=== PATIENT | male | born 1965 | race Hispanic/Latino ===

== ENCOUNTER 2018-06-28 14:25 | Inpatient (IN) | payer SELFPAY ==
--- NOTE | 2018-06-28 15:36 | RAD ---
CHEST ONE VIEW: Indication: Hypertension. Comparison: None. FINDINGS: Lungs are clear. Heart size is upper limits of normal. There is focal eventration of the right hemidi aphragm. No pleural effusion or pneumothorax is evident. IMPRESSION: No acute cardiopulmonary abnormality. POS: [facility]
[2018-06-28 15:53] LABS: #Basophils 0.1 thou/uL (0.0-0.2); #Eosinphils 0.1 thou/uL (0.0-0.7); #Monocytes 0.8 thou/uL (0.11-0.59); #Neutrophils 8.2 thou/uL (1.40-6.50); %Basophils 0.9 % (0.0-1.0); %Eosinophils 1.1 % (0.0-10.0); %Lymphocytes 24.1 % (21.0-51.0); %Monocytes 6.8 % (0.0-10.0); %Neutrophils 67.1 % (42.0-75.0); Hemoglobin 19.9 g/dL (14.0-18.0); Mean Corpuscular HGB CONC 31.8 g/dL (32.0-36.0); Mean Corpuscular Hemoglobin 30.5 pg (27.0-31.0); Mean Corpuscular Volume 95.7 fL (78.0-98.0); Mean Platelet Volume 8.1 fL (7.4-10.4); Platelet Count 305 thou/uL (130-400); RBC Distribution Width 12.6 % (11.5-14.5); Red Blood Cell (RBC) Count 6.54 mill/uL (4.70-6.10); White Blood Cell (WBC) Count 12.3 thou/uL (4.8-10.8)
[2018-06-28 16:08] LABS: ALT (SGPT) 30 U/L (8-55); AST (SGOT) 50 U/L (5-34); Albumin 1.9 g/dL (3.5-5.0); Alkaline Phosphatase 104 U/L (40-150); Anion Gap 10 mmol/L (10-20); BUN (Urea Nitrogen) 14 mg/dL (8.4-25.7); Bilirubin, Total 0.3 mg/dL (0.2-1.2); CK (CPK) 155 U/L (30-200); Calc. Creatinine Clearance 0 mL/min (70-130); Calcium 8.1 mg/dL (7.8-10.44); Carbon Dioxide 27 mmol/L (22-29); Chloride 102 mmol/L (98-107); Estimated GFR-MDRD 85; Globulin 3.9 g/dL (2.4-3.5); Glucose 97 mg/dL (70-105); Potassium 4.1 mmol/L (3.5-5.1); Protein, Total 5.8 g/dL (6.0-8.3); Sodium 135 mmol/L (136-145)
[2018-06-28 16:13] LABS: CKMB 2.4 ng/mL (0-6.6); Troponin I Less than 0.010 ng/mL (< 0.028)
[2018-06-28 17:04] LABS: Bilirubin Small (Negative); Blood, Urine Large (Negative); Clarity TURBID (Clear); Glucose, Urine (Dipstick) Negative (Negative); Leukocyte Small (Negative); Nitrite Negative (Negative); Protein, Urine (Dipstick) > or equal to 300 mg/dL (Neg-Trace)
[2018-06-28 17:07] LABS: Yeast-AUWi Flag 803.1 (0-25.0)
[2018-06-28 17:15] LABS: Bacteria/HPF 1+ HPF (None Seen); Hyaline Casts/LPF 4-6 HYALINE CAST LPF (0-3 Hyaline); Manual Microscopic Reviewed? No Path Casts Seen; Other Casts/LPF 0-3 RBC CASTS LPF (0-3 Hyaline); Renal Epithelial None Seen HPF (0-3); Yeast-All Forms None Seen HPF (None Seen)
[2018-06-28 17:19] LABS: Specific Gravity, Urine 1.058 (1.002-1.036)
[2018-06-28] MEDS ORDERED: cefTRIAXone\\ROCEPHIN 1 GM VIAL ONE (18:48)
[2018-06-28] MEDS ORDERED: Ondansetron ODT 4 MG TAB SL PRN (22:17)
[2018-06-28] MEDS ORDERED: Ondansetron PF 4 MG/2 ML Vial IVP PRN (22:17)
[2018-06-28] MEDS ORDERED: Acetaminophen 325 MG TAB PO PRN (22:17)
[2018-06-28 22:21] VITALS: BMI 38.0
[2018-06-28 23:05] LABS: HIV (1/2) Antibody/Antigen Non-Reactive (NonReactive); HIV 1/2 INDEX 0.12 S/CO (<1.00)
--- NOTE | 2018-06-29 01:45 | HP ---
CHIEF COMPLAINT: Edema. HISTORY OF PRESENT ILLNESS: Patient is a 52-year-old male with no significant past medical history w andra presented to the emergency department with the complaint of edema. Patient reports that it has be en about a month and since symptoms started. He states on the day or just immediately before startin g it, the patient was working outside in May, it was hot and he did a lot of sweating. He was having a lot of muscle cramping in his hands, neck, and arms and everywhere that he was exerting. He subsequently got better from that, but when he got home the night he noticed that he had some swelli ng in his feet. He subsequently went to bed and it was somewhat better by the next morning. However , over the past month, he has insidiously had increasing edema of the feet up the legs the abdomen an d today he noticed that he had some sort of flaccid edema in the left pectoralis area and did not hav e it on the right. Therefore, he decided to come to the emergency department. He does report that i n the interim, he has also been to his sister's home and had his blood pressure checked and it has be en high. He also checked it at a pharmacy where it was also noted to be high. He has no history of hypertension, but has not seen a doctor in 40 years. The patient denies having any antecedent illnes s such as upper respiratory infections or sore throat. He does admit to having some decreased urine output. He feels like he has had a little more difficulty voiding, thought maybe he had a urinary tr act infection, so he has been trying to drink cranberry juice. He also admits that his urine has bec ome darker. He denies any significant chest pain, shortness of breath or palpitations. He does admi t to increased generalized fatigue, more so than he had in the past. He does feel some general heavi ness sensation in his abdomen and chest areas. REVIEW OF SYSTEMS: A 10-system review negative except for those things listed in the history of pres ent illness. PAST MEDICAL HISTORY: None. Again, patient has not seen a doctor in over 40 years. PAST SURGICAL HISTORY: None. FAMILY HISTORY: The patient is adopted, but believes his biological father had diabetes and ME. SOCIAL HISTORY: Patient is a very occasional drinker, not regular, not heavy. Denies tobacco. He d oes have some remote history of drugs, but never did IV drugs. Has not used any in a good while. He is . His sister would be his surrogate decision maker and he is a FULL CODE. MEDICATIONS: None. ALLERGIES: None. PHYSICAL EXAMINATION: VITAL SIGNS: Blood pressure 153/91, pulse 80, respirations 18, temperature 98.2, O2 sat 97% on room air. GENERAL APPEARANCE: Age appropriate male. He is in no distress. He is awake, alert, and oriented, pleasant, cooperative. HEENT: PERRL. No OP lesions. NECK: Supple and symmetric. No lymphadenopathy, JVD, or carotid bruits. CARDIOVASCULAR: Regular rate and rhythm without murmurs, gallops or rubs. LUNGS: Clear to auscultation bilaterally with good chest wall expansion, air exchange. ABDOMEN: Soft with some superficial pitting, but no tenderness, no masses. EXTREMITIES: Extremities have 2+ to 3+ pitting edema all the way up to the abdomen and appears to gentile ve good blood flow. SKIN: Warm and dry. LABORATORY DATA: White count is 12.3, hemoglobin 19.9, hematocrit 62.6, platelets 305. Sodium 135, potassium 4.1, chloride 102, CO2 is 27, BUN 14, creatinine 0.93. AST 50, ALT 30, alkaline phosphatas e 104. Troponin less than 0.01. BNP 71.2. Albumin is 1.9 with total protein of 5.8, globulin 3.9. Urinalysis, specific gravity 1.058. Urine protein is greater than 300, ketones 15, large blood, sma ll bilirubin, small leukocyte esterase, 7-10 red cells, greater than 50 white cells, 4-6 squamous kole ls, 4-6 transitional cells, 1+ bacteria, 4-6 hyaline casts, 0-3 RBC casts. Chest x-ray negative. ASSESSMENT AND PLAN: 1. Severe peripheral edema in a patient with no known prior medical history, but with some elevated blood pressure. His labs are most remarkable for hypoalbuminemia with significant proteinuria. He a lso has some hyalin casts, red cell casts and some evidence of hemoconcentration. His BNP is also lo w at 71.2. His globulin is a bit high and I suspect this patient may be suffering from a nephrotic s yndrome with significant proteinuria and secondary anasarca. We will obtain a TSH, hepatitis panel, serum and protein electrophoresis, urine quantitative protein, renal ultrasound, echocardiogram and c onsult Nephrology. The patient has received a dose of Rocephin in the emergency department. He has cultures pending, although I suspect he does not have true infectious etiology at this particular kennedy e, we will continue to wait for Nephrology consult and cultures. 2. Polycythemia may be some hemoconcentration with his third spacing of fluids. 3. Leukocytosis, unclear etiology, possible the patient may have some urinary tract infection and he has received a dose of Rocephin. We will follow up. 4. Normal creatinine with nephrotic syndrome appearance concerning for minimal change .
[2018-06-29 09:00] LABS: Complement-C4 36.4 mg/dL (15-53)
[2018-06-29 09:05] LABS: Prothrombin Time 13.1 SEC (12.0-14.7)
[2018-06-29 09:06] LABS: PTT 29.1 SEC (22.9-36.1)
--- NOTE | 2018-06-29 10:09 | ULT ---
RENAL ULTRASOUND: HISTORY: Renal insufficiency. TECHNIQUE: Real-time imaging of the right and left kidneys was performed. The right kidney measures 12.1 and th e left 11.6 cm in size. No signs of cyst, mass, or obstruction. The bladder region is unremarkable. Ascites is incidentally noted. FINDINGS: 1. Ascites. 2. Unremarkable renal ultrasound. POS: [facility]
[2018-06-29 11:04] LABS: Hep C IgG Ab Reflex HepC Qnt (NonReactive); Hep C Index 17.21 S/CO (0-0.79)
--- NOTE | 2018-06-29 21:16 | PDOC.PN ---
- Subjective Encounter Start Date: 06/29/18 Encounter Start Time: 10:30 - Objective Resuscitation Status: Resuscitation Status FULL:Full Resuscitation Vital Signs & Weight: Vital Signs (12 hours) Temp Pulse Resp BP Pulse Ox 06/29/18 15:20 98.2 F 69 20 134/93 H 96 06/29/18 11:07 98.4 F 72 20 140/91 H 95 Weight Admit Weight 250 lb 4 oz Weight 250 lb 9.6 oz I&O: 06/28/18 06/29/18 06/30/18 06:59 06:59 06:59 Intake Total 950 1100 Output Total 800 160 Balance 150 940 Result Diagrams: 06/28/18 15:40 06/28/18 15:40 Phys Exam - Physical Examination Constitutional: NAD Respiratory: no wheezing, no rales, no rhonchi, clear to auscultation bilateral Cardiovascular: RRR, no significant murmur S4 Gastrointestinal: soft, non-tender, no distention Edema to the chest Psychiatric: normal affect, A&O x 3 Dx/Plan (1) Nephritic syndrome Code(s): N05.9 - UNSP NEPHRITIC SYNDROME WITH UNSPECIFIED MORPHOLOGIC CHANGES Status: Acute (2) Anasarca Code(s): R60.1 - GENERALIZED EDEMA Status: Acute (3) Hypertension Code(s): I10 - ESSENTIAL (PRIMARY) HYPERTENSION Status: Acute - Plan * New onset nephrotic syndrome. So far work up has not yielded anything to help specify the exact pathology. Biopsy tomorrow.
--- NOTE | 2018-06-30 03:33 | CON ---
NEPHROLOGY CONSULTATION DATE OF CONSULTATION: 06/29/2018 REASON FOR CONSULTATION: Proteinuria. HISTORY OF PRESENT ILLNESS: This is a 52-year-old gentleman being admitted for leg swelling started about a month ago with major edema. The patient denies no fever, nausea, vomiting or chills. The pa tient denies any history of hepatitis or any drug use. Denies any significant past medical history. PAST MEDICAL HISTORY: Only significant for hypertension and edema. SOCIAL HISTORY: No alcohol use. FAMILY HISTORY: Negative for ESRD. HOME MEDICATIONS: List reviewed. ALLERGIES: Reviewed. PHYSICAL EXAMINATION: GENERAL: The patient is awake, alert. VITAL SIGNS: Afebrile, pulse 80, breathing 16, blood pressure . GENERAL APPEARANCE AND MENTAL STATUS: Fair. HEAD/NECK: Normocephalic. Atraumatic. EYES: EOMI. No deformity. EARS: Clear. No ulcers. NOSE: Intact. No lesions. MOUTH: Clear. No discharge. THROAT: Clear. No exudate. LUNGS: Clear. No crackles. CARDIAC: S1, S2. No rub. ABDOMEN: Benign. BS+. GENITALIA/RECTUM: Norton absent. BACK/EXTREMITIES: 4+ edema ulcer- NEUROLOGICAL: Alert and motor intact. SKIN: Rash- Bruise- LYMPHATICS: Edema- ulcer- LABORATORY: Creatinine is 0.9, albumin is 1.9. Urine protein is 6 grams. ASSESSMENT AND RECOMMENDATIONS: 1. Acute kidney with chronic kidney disease could be because of rheumatological or infectious causes . Would recommend getting hepatitis C and hepatitis B. Workup also an HIV test and I will order the workup for rheumatologic diseases such as lupus. The patient will need a kidney biopsy. Risks vers us benefits were discussed. I will order a renal biopsy in the morning. 2. Anemia, proteinuria, see above. I would recommend starting low dose CHANDLER inhibitor.
[2018-06-30 05:54] LABS: #Basophils 0.1 thou/uL (0.0-0.2); #Eosinphils 0.2 thou/uL (0.0-0.7); #Lymphocytes 3.3 thou/uL (1.20-3.40); #Monocytes 0.8 thou/uL (0.11-0.59); #Neutrophils 3.7 thou/uL (1.40-6.50); %Basophils 1.1 % (0.0-1.0); %Lymphocytes 40.3 % (21.0-51.0); %Monocytes 10.3 % (0.0-10.0); %Neutrophils 45.4 % (42.0-75.0); Hemoglobin 17.6 g/dL (14.0-18.0); Mean Corpuscular HGB CONC 32.8 g/dL (32.0-36.0); Mean Corpuscular Hemoglobin 31.4 pg (27.0-31.0); Mean Platelet Volume 8.3 fL (7.4-10.4); Platelet Count 240 thou/uL (130-400); RBC Distribution Width 12.5 % (11.5-14.5); Red Blood Cell (RBC) Count 5.58 mill/uL (4.70-6.10); White Blood Cell (WBC) Count 8.1 thou/uL (4.8-10.8)
[2018-06-30 15:04] LABS: ANA Symphony (Qualitative) Negative (Negative); dsDNA IgG Antibody 0.8 IU/mL (<10 Negative)
[2018-06-30 15:25] LABS: EliA Vaculitis New Method **** NEW METHOD ****; Mitochondrial Ab 0.5 U/mL (<4 Negative)
[2018-06-30 15:26] LABS: EliA Vaculitis New Method **** NEW METHOD ****; Glomerular Basemt Membrane Ab Less than 1.9 EliAU/mL (<7 Negative)
[2018-06-30 15:45] LABS: Cardiolipin IgA Ab 1.5 APL-U/mL (<14 Negative); Cardiolipin IgG Ab 0.6 GPL-U/mL (<10 Negative); Cardiolipin IgM Ab 1.6 MPL-U/mL (<10 Negative); EliA APS New Method **** NEW METHOD ****; beta-2-Glycoprotein I IgA Ab 1.2 U/mL (<7 Negative); beta-2-Glycoprotein I IgG Ab Less than 0.6 U/mL (<7 Negative); beta-2-Glycoprotein I IgM Abs Less than 2.9 U/mL (<7 Negative)
--- NOTE | 2018-06-30 18:56 | CT ---
CT GUIDED RANDOM KIDNEY BIOPSY: Date: 06/30/18 INDICATION: Proteinuria. Test [employer] requested biopsy for diagnostic purposes. FINDINGS: Two 18 gauge core biopsy specimens were taken from the inferior pole of the left kidney under CT guid ance. Dr. Esquivel was present at CT and confirmed adequacy of the specimens. PROCEDURE NOTE: The procedure was discussed with the patient. Complications, including bleeding, were discussed. The patient was placed prone on the CT table. CT images were obtained. The skin entry site was identi fied and marked. The overlying skin was then prepped and draped in the sterile manner. Local anesthes ia was then administered with lidocaine and bicarb. A tiny incision was made in the skin. A 15 length 17 gauge guide needle with trocar in place was then introduced under CT guidance into the inferior p ole of the left kidney from a posterior approach. CT confirmed tip of the needle along the posterior margin of the renal cortex of the inferior pole. Trocar was removed and biopsy instrument attached. A 2.3 cm length 18 gauge core biopsy specimen was obtained and given to pathology. A second biopsy specimen was obtained at a slightly superior location in the lower pole. Second sampl e was given to pathology. Needle was removed. Postprocedure CT scan was performed. The postprocedure CT revealed a small subcap sular hematoma involving the posterior aspect of the lower pole of the left kidney at the biopsy site . The subcapsular hematoma measures approximately 1.8 cm width. The patient was returned to his room and vital signs will be monitored every 15 minutes x1 hour, and every 30 minutes x2 hours. The patient tolerated the procedure well and with no problems or complicat ions. POS: [facility]
--- NOTE | 2018-06-30 21:15 | PDOC.PN ---
- Subjective Encounter Start Date: 06/30/18 Encounter Start Time: 11:10 Doing well. No complaints. - Objective Resuscitation Status: Resuscitation Status FULL:Full Resuscitation Vital Signs & Weight: Vital Signs (12 hours) Temp Pulse Resp BP Pulse Ox 06/30/18 20:19 98.2 F 72 18 160/90 H 95 06/30/18 20:15 98.2 F 72 18 160/90 H 95 06/30/18 20:00 95 06/30/18 17:12 98.4 F 66 18 128/77 95 Weight Admit Weight 250 lb 4 oz Weight 250 lb 9.6 oz I&O: 06/29/18 06/30/18 07/01/18 06:59 06:59 06:59 Intake Total 950 1720 360 Output Total 800 1210 Balance 150 510 360 Result Diagrams: 06/30/18 05:19 06/28/18 15:40 Phys Exam - Physical Examination Constitutional: NAD Respiratory: no wheezing, no rales, no rhonchi, clear to auscultation bilateral Cardiovascular: RRR, no significant murmur Gastrointestinal: soft, non-tender, no distention Persistent pitting edema of the LE's 2+ Psychiatric: normal affect, A&O x 3 Dx/Plan (1) Nephrotic syndrome Code(s): N04.9 - NEPHROTIC SYNDROME WITH UNSPECIFIED MORPHOLOGIC CHANGES Status: Acute Comment: Workup underway. May be related to Hep C, but confirmation pending. Biopsy today. Nephrology following. (2) Anasarca Code(s): R60.1 - GENERALIZED EDEMA Status: Acute (3) Hypertension Code(s): I10 - ESSENTIAL (PRIMARY) HYPERTENSION Status: Acute Comment: Variable. Will consider treatment pending biopsy results. - Plan * Above. * May be able to discharge for outpatient follow up. * Has positive hep c ab. Quantitative confirmation pending.
--- NOTE | 2018-06-30 21:25 | PRG ---
DATE OF SERVICE: 06/30/2018 SUBJECTIVE: This is a 52-year-old gentleman being seen for proteinuria. The patient denies any naus ea, vomiting or chest pain. PHYSICAL EXAMINATION: GENERAL APPEARANCE: The patient is awake, alert. VITAL SIGNS: Pulse 60, breathing 16, blood pressure 128/77. HEAD/NECK: Normocephalic. Atraumatic. EYES: EOMI. No deformity. EARS: Clear. No ulcers. NOSE: Intact. No lesions. MOUTH: Clear. No discharge. THROAT: Clear. No exudate. LUNGS: Clear. No crackles. CARDIAC: S1, S2. No rub. ABDOMEN: Benign. BS+. GENITALIA/RECTUM: Norton absent. BACK/EXTREMITIES: Edema 0+ Ulcer- NEUROLOGICAL: Alert and motor intact. SKIN: Rash- Bruise- LYMPHATICS: Edema- Ulcer- RHEUMATOLOGIC: Immunology negative. LABORATORY DATA: Show hemoglobin 13.6, creatinine 0.9. Hepatitis C screening is positive. ASSESSMENT AND RECOMMENDATIONS: 1. Nephrotic range proteinuria, renal biopsy pending. 2. Hypertension, stable. 3. Anemia, stable. 4. Proteinuria. Start the patient on CHANDLER inhibitor. Discussed side effects. Check labs in the [facility].
[2018-07-01 05:08] LABS: Anion Gap 11 mmol/L (10-20); BUN (Urea Nitrogen) 18 mg/dL (8.4-25.7); Calc. Creatinine Clearance 158 mL/min (70-130); Calcium 7.5 mg/dL (7.8-10.44); Carbon Dioxide 24 mmol/L (22-29); Chloride 104 mmol/L (98-107); Estimated GFR-MDRD Greater than 90; Glucose 81 mg/dL (70-105); Potassium 3.8 mmol/L (3.5-5.1); Sodium 135 mmol/L (136-145)
[2018-07-01 07:53] VITALS: TEMP 98.2
[2018-07-01] MEDS ORDERED: Lisinopril 5 MG TAB PO SCH (09:00)
[2018-07-01 11:27] VITALS: BP 154/95
--- NOTE | 2018-07-01 12:00 | PRG ---
DATE OF SERVICE: 07/01/2018 SUBJECTIVE: A 52-year-old gentleman being seen for acute kidney injury. The patient denies any naus ea, vomiting, or chest pain. PHYSICAL EXAMINATION: GENERAL: Patient is awake, alert. VITAL SIGNS: Afebrile, pulse 62, breathing 16, blood pressure 149/98. HEAD/NECK: Normocephalic. Atraumatic. EYES: EOMI. No deformity. EARS: Clear. No ulcers. NOSE: Intact. No lesions. MOUTH: Clear. No discharge. THROAT: Clear. No exudate. LUNGS: Clear. No crackles. CARDIAC: S1, S2. No rub. ABDOMEN: Benign. BS+. GENITALIA/RECTUM: Norton absent. BACK/EXTREMITIES: Lower extremity shows edema. NEUROLOGICAL: Alert and motor intact. SKIN: Rash- Bruise- LYMPHATICS: Edema- Ulcer- LABORATORY DATA: Show creatinine is 0.8. ASSESSMENT AND RECOMMENDATIONS: 1. Stage I chronic kidney disease, stable. 2. Hypertension. Continue 10 mg of lisinopril. 3. Proteinuria workup and pending workup for renal biopsy is pending. The patient can be followed u p as an outpatient in 3-4 days.
[2018-07-02 07:11] LABS: HCV log10 6.737 (.); Hep C PCR-Quant 5460000 IU/mL (.)
[2018-07-03 14:25] LABS: Factor VIII Test 349.6 % ACTIVE (56-157)
[2018-07-03 15:21] LABS: Hep B Surface AG-Rflx Sendout Negative (Negative); Hepatitis B Core IgM AB Negative (Negative); Hepatitis B Core Total Negative (Negative); Hepatitis B Surface AB-Sendout Non Reactive (.)
[2018-07-03 19:10] LABS: A/G Ratio 0.4 (0.7-1.7); Albumin 1.3 g/dL (2.9-4.4); Alpha 1 0.2 g/dL (0.0-0.4); Alpha 2 1.5 g/dL (0.4-1.0); Gamma 0.6 g/dL (0.4-1.8); Globulin, Total 3.2 g/dL (2.2-3.9); M-Spike Not Observed g/dL (Not Observed)
[2018-07-04 09:14] LABS: DRVVT Confirm 39.5; DRVVT Ratio 0.9 Ratio (1.2 or Less); DRVVT Screen 33.8 SEC (20-50)
[2018-07-04 09:24] LABS: HEX PHOS LA Tube 2 54.7 SEC; Hexagonal Phospholipid Neut 0.3 SEC (0-8.0)
[2018-07-04 16:15] LABS: Albumin-Ur 66.8 % (.); Alpha 1 - Ur 2.5 % (.); Alpha 2 - Ur 11.2 % (.); Beta-Ur 13.1 % (.); Gamma-Ur 6.4 % (.); M-Spike,% Not Observed % (Not Observed); Protein, Urine 4087.7 mg/dL (Not Estab.)
== END 2018-07-01 13:50 | disposition home or self-care (01) | DRG 700 ==
LOC: ERS 14:25 → 2SW 17:27 → OBSVTOIN 17:27 → T4-B 06-29 19:50
PROVIDERS: ADMIT Internal Medicine; ATTEND Internal Medicine
PROC: 0TB13ZX Excision of Left Kidney, Percutaneous Approach, Diagnostic (ICD-10-PCS; principal; 2018-06-30)
DX: N04.9 Nephrotic syndrome with unspecified morphologic changes (principal); R60.1 Generalized edema; I10 Essential (primary) hypertension; D75.1 Secondary polycythemia; N18.3 Chronic kidney disease, stage 3 (moderate); I12.9 Hypertensive chronic kidney disease with stage 1 through stage 4 chronic kidney disease, or unspecified chronic kidney disease; N18.1 Chronic kidney disease, stage 1
CPT/HCPCS: 36415; 50200; 71045; 76770; 77012; 80048; 80053; 81003; 81015; 82553; 82570; 83516; 83880; 84156; 84165; 84166; 84443; 84484; 85025; 85240; 85250; 85598; 85610; 85613; 85730; 86038; 86146; 86147; 86160; 86225; 86704; 86705; 86706; 86707; 86803; 87340; 87350; 87389; 87522; 88329; 90471; 90686; 93005; 93306; 96365; G0008; J0696

== ENCOUNTER 2019-01-16 14:17 | Observation (INO) | payer OTHER, SELFPAY ==
[2019-01-16 16:06] LABS: #Basophils 0.1 thou/uL (0.0-0.2); #Eosinphils 0.2 thou/uL (0.0-0.7); #Lymphocytes 3.2 thou/uL (1.20-3.40); #Monocytes 0.6 thou/uL (0.11-0.59); #Neutrophils 5.9 thou/uL (1.40-6.50); %Basophils 1.1 % (0.0-1.0); %Lymphocytes 31.5 % (21.0-51.0); %Monocytes 6.4 % (0.0-10.0); Hemoglobin 14.8 g/dL (14.0-18.0); Mean Corpuscular HGB CONC 32.7 g/dL (32.0-36.0); Mean Corpuscular Hemoglobin 30.7 pg (27.0-31.0); Mean Platelet Volume 7.7 fL (7.4-10.4); Platelet Count 336 thou/uL (130-400); RBC Distribution Width 13.6 % (11.5-14.5)
[2019-01-16 16:29] LABS: ALT (SGPT) 9 U/L (8-55); AST (SGOT) 19 U/L (5-34); Albumin 1.6 g/dL (3.5-5.0); Alkaline Phosphatase 107 U/L (40-150); Anion Gap 9 mmol/L (10-20); BUN (Urea Nitrogen) 17 mg/dL (8.4-25.7); Bilirubin, Total 0.2 mg/dL (0.2-1.2); Calc. Creatinine Clearance 0 mL/min (70-130); Carbon Dioxide 25 mmol/L (22-29); Chloride 109 mmol/L (98-107); Estimated GFR-MDRD 37; Globulin 3.8 g/dL (2.4-3.5); Glucose 98 mg/dL (70-105); Lipase 19 U/L (8-78); Protein, Total 5.4 g/dL (6.0-8.3); Sodium 140 mmol/L (136-145)
[2019-01-16 16:32] LABS: Potassium 2.6 mmol/L (3.5-5.1)
[2019-01-16] MEDS ORDERED: Potassium Chloride 20 MEQ TAB ONE (16:58)
[2019-01-16] MEDS ORDERED: Furosemide 20 MG/2 ML VIAL ONE (18:12)
[2019-01-16 19:04] LABS: Bilirubin Negative (Negative); Blood, Urine Moderate (Negative); Clarity CLOUDY (Clear); Glucose, Urine (Dipstick) 500 mg/dL (Negative); Leukocyte Negative (Negative); Nitrite Negative (Negative); Protein, Urine (Dipstick) > or equal to 300 mg/dL (Neg-Trace); Urobilinogen 0.2 mg/dL (0.2-1.0); pH, Urine 6.5 (5.0-9.0)
[2019-01-16 19:07] LABS: Pathc Cast-AUWi Flag 3.12 (0-2.49); Yeast-AUWi Flag 412.6 (0-25.0)
[2019-01-16 19:15] LABS: Bacteria/HPF 1+ HPF (None Seen)
[2019-01-16 19:16] LABS: Hyaline Casts/LPF NONE SEEN LPF (0-3 Hyaline); Manual Microscopic Reviewed? No Path Casts Seen; Renal Epithelial None Seen HPF (0-3); Transitional Epithelial 0-3 HPF (0-3); Yeast-All Forms None Seen HPF (None Seen)
[2019-01-16] MEDS ORDERED: Acetaminophen 325 MG TAB PO PRN (21:29)
[2019-01-16] MEDS ORDERED: Senokot S 8.6-50 MG TAB PO PRN (21:29)
[2019-01-16] MEDS ORDERED: Ondansetron PF 4 MG/2 ML Vial IVP PRN (21:29)
[2019-01-16] MEDS ORDERED: Acetaminophen 650 MG Suppository PR PRN (21:29)
[2019-01-16] MEDS ORDERED: Ondansetron ODT 4 MG TAB PO PRN (21:29)
[2019-01-16] MEDS ORDERED: Guaifenesin DM 100-10/5 ML UDCUP PO PRN (21:29)
[2019-01-16] MEDS: Metoprolol Tartrate 50 MG TAB PO SCH (22:47)
[2019-01-16] MEDS: Rosuvastatin 20 MG TAB PO SCH (22:47)
[2019-01-17 00:27] VITALS: BMI 37.3
--- NOTE | 2019-01-17 01:35 | HP ---
PRIMARY CARE PHYSICIAN: Dr. Felicia Lakhani. CHIEF COMPLAINT: Worsening anasarca. HISTORY OF PRESENT ILLNESS: This is a 53-year-old male who was diagnosed with nephrotic syndrome in June of last year with lower extremity and abdominal swelling and also diagnosed with hepatitis C at that time, though no cirrhosis. The patient was treated by Dr. Chaudhari. He has been receiving diuretics, which often helped the edema; however, he works for a [employer] company, runs the bulldozer all day, so he cannot be getting up and down to urinate, so he waits until taking his medicine, until after he gets off work in the evening. This keeps him up half the night and he does not get much sleep before he goes back to working in the next day. Also due to his work schedule and living by himself, he does not eat a healthy diet and eats out a lot and he does not like the taste of food if it does not have salt in it. He does not know how to cook healthy food himself. The patient was last seen by Dr. Chaudhari about 3 months ago. He had been doing decently with swelling going on and off a little bit, but then it got significantly worse over the last few weeks. The patient went to see Dr. Chaudhari today and Dr. Chaudhari saw his significant abdominal distention and lower extremity edema and then he sent him over to the emergency room. In the ER, the patient was found to be significantly hypokalemic and also to have some acute renal failure. He was given a dose of oral potassium and a dose of furosemide in the emergency room and has started urinating some. The patient's only other symptom is that he has significant dyspnea on exertion when he gets very swollen. PAST MEDICAL HISTORY: 1. Nephrotic syndrome. 2. Hepatitis C. 3. Hypertension. 4. Hyperlipidemia. PAST SURGICAL HISTORY: Tonsillectomy. SOCIAL HISTORY: The patient has no tobacco use history. He previously smoked marijuana, quit when he was diagnosed with the nephrotic syndrome. He used to drink alcohol fairly heavily also, until he was diagnosed with hepatitis C last year. He is , lives at home alone. He was accompanied in the emergency room by his son. FAMILY MEDICAL HISTORY: The patient is adopted. He does not know any definitive medical problems in his family. He was told by a relative that his father may have had diabetes or heart disease, but he is not certain about this. ALLERGIES: NO KNOWN DRUG ALLERGIES. CURRENT MEDICATIONS: 1. Lisinopril 20 mg daily. 2. Rosuvastatin 20 mg daily. 3. Torsemide 20 mg daily. 4. Potassium chloride 20 mEq p.o. daily. 5. Mavyret 100/40 mg, 3 tablets each morning. REVIEW OF SYSTEMS: CONSTITUTIONAL: No fevers. He has had a little bit of chills. EYES: No double vision or blurred vision. ENT: No congestion, drainage, or sore throat. CARDIOVASCULAR: No chest pain. No palpitations or racing heart. He does have dyspnea on exertion. PULMONARY: No coughing, wheezing, or shortness of breath other than the dyspnea on exertion. GASTROINTESTINAL: No abdominal pain. No nausea or vomiting. No diarrhea. He does report intermittent constipation secondary to his poor diet and occasionally will have hemorrhoidal bleeds, though not frequently. GENITOURINARY: He reports some edema around his penis and sometimes makes it hard to pee, though he has been peeing okay in the last few days. No dysuria or hematuria. MUSCULOSKELETAL: No muscle aches or joint pains. He does report some muscle atrophy since his diagnosis with nephrotic syndrome last year. SKIN: No rashes or other lesions he has noted. NEUROLOGIC: No numbness, tingling, or focal weakness. PHYSICAL EXAMINATION: VITAL SIGNS: Blood pressure 149/102, pulse 82, respirations 16, temperature 98.7, O2 saturation 95% on room air. GENERAL: This is a well-developed, obese male, in no acute distress. HEENT: Pupils equal, round, and reactive to light. Oropharynx is clear without lesions, erythema, or exudate. NECK: Supple. No lymphadenopathy. No thyroid nodules or enlargement. No JVD. HEART: Regular rate and rhythm. No murmurs, rubs, or gallops. LUNGS: Clear to auscultation bilaterally. No wheezes, crackles, or rhonchi. ABDOMEN: Soft, nontender to palpation. Normoactive bowel sounds. No hepatosplenomegaly or other masses. He does have some increased abdominal girth. No specific fluid wave noted. He does have some edema of the overlying abdominal skin, especially in the lower edge of his abdomen. EXTREMITIES: He has 2+ pitting edema in bilateral lower extremities. No clubbing or cyanosis. SKIN: No rashes or other lesions noted. NEUROLOGIC: He has intact strength and sensation in all extremities. No facial droop. PSYCHIATRIC: Alert and oriented x3. Normal mood and affect. LABORATORY DATA: CBC within normal limits. Complete metabolic panel is notable for a potassium of 2.6, chloride of 109, anion gap of 9, and creatinine of 1.89. Albumin is 1.6. Lipase was normal. The rest of the complete metabolic panel was normal. EKG, not done in the emergency room. Urinalysis is pending. ASSESSMENT: 1. Anasarca secondary to nephrotic syndrome. We will continue diuretics and do a fluid and salt restricted diet. 2. Nephrotic syndrome with worsening renal failure. We will consult Dr. Chaudhari. He will see the patient in the morning. 3. Hypokalemia. The patient received oral replacement in the emergency room, but also a dose of Lasix. I will recheck potassium and if it is still low, continue replacement and we will order daily potassium supplements. 4. Hypertension. We will hold the patient's lisinopril due to the worsening renal failure. We will start the patient on antihypertensives and beta abraham to control his blood pressure until we get him diuresed. 5. Hyperlipidemia. We will resume the patient's statin. 6. Hepatitis C. We will resume the patient's antivirals. 7. Gastrointestinal prophylaxis. We will put the patient on Pepcid twice a day. 8. Deep venous thrombosis prophylaxis. We will put the patient on low-dose Lovenox. 9. Code status. I did discuss this with the patient. He is a full code. Should he be incapacitated, he states that his son Silvino Cantu junior would be his medical decision maker along with his ex- who is listed as his contact in the computer, Siriacb Cantu. Job ID: [id number] MTDD
[2019-01-17] MEDS: Furosemide 40 MG/4 ML VIAL SLOW IVP SCH ×2 (05:52→14:34)
[2019-01-17 06:20] LABS: #Basophils 0.1 thou/uL (0.0-0.2); #Eosinphils 0.4 thou/uL (0.0-0.7); #Lymphocytes 3.3 thou/uL (1.20-3.40); #Monocytes 0.6 thou/uL (0.11-0.59); #Neutrophils 4.6 thou/uL (1.40-6.50); %Basophils 1.1 % (0.0-1.0); %Lymphocytes 36.8 % (21.0-51.0); %Monocytes 7.1 % (0.0-10.0); Hemoglobin 13.3 g/dL (14.0-18.0); Mean Corpuscular HGB CONC 32.6 g/dL (32.0-36.0); Mean Corpuscular Hemoglobin 30.7 pg (27.0-31.0); Mean Corpuscular Volume 94.3 fL (78.0-98.0); Platelet Count 298 thou/uL (130-400); RBC Distribution Width 13.5 % (11.5-14.5); Red Blood Cell (RBC) Count 4.34 mill/uL (4.70-6.10); White Blood Cell (WBC) Count 9.1 thou/uL (4.8-10.8)
[2019-01-17 06:52] LABS: Anion Gap 9 mmol/L (10-20); BUN (Urea Nitrogen) 17 mg/dL (8.4-25.7); Calc. Creatinine Clearance 70 mL/min (70-130); Calcium 7.6 mg/dL (7.8-10.44); Carbon Dioxide 23 mmol/L (22-29); Chloride 110 mmol/L (98-107); Estimated GFR-MDRD 39; Glucose 85 mg/dL (70-105); Sodium 139 mmol/L (136-145)
[2019-01-17 06:57] LABS: Potassium 2.6 mmol/L (3.5-5.1)
[2019-01-17] MEDS ORDERED: Potassium Chloride 20 MEQ TAB PO SCH ×3 (07:15→17:00)
[2019-01-17] MEDS: Metoprolol Tartrate 50 MG TAB PO SCH ×2 (08:10→21:39)
[2019-01-17] MEDS: Enoxaparin Sodium 30 MG/0.3 ML SYRINGE SC SCH (08:11)
[2019-01-17] MEDS: Famotidine 20 MG TAB PO SCH (08:11)
[2019-01-17 11:05] LABS: PTT 29.6 SEC (22.9-36.1); Prothrombin Time 13.2 SEC (12.0-14.7)
[2019-01-17] MEDS ORDERED: Sodium Bicarbonate 2.5 MEQ/5 ML VIAL ONE (11:18)
--- NOTE | 2019-01-17 12:59 | ULT ---
Exam: Ultrasound guided paracentesis HISTORY: Ascites COMPARISON: None FINDINGS: Successful ultrasound-guided paracentesis. Total of 5 L of slightly cloudy yellow color asc ites was aspirated. TECHNIQUE: Consent obtained reformatory ultrasound-guided paracentesis. Right lower quadrant was deem ed appropriate. Skin was prepped and draped in a sterile fashion. 1% lidocaine, buffered with sodium bicarbonate was used for local anesthesia. Under ultrasound guidance, a 5 Portuguese 7 cm Yueh cat heter is advanced in the peritoneal space. A total of 5 L of slightly cloudy yellow color ascites was aspirated. No immediate or postprocedural complications IMPRESSION: Successful ultrasound-guided paracentesis.
--- NOTE | 2019-01-17 13:40 | PDOC.PN ---
- Subjective Encounter Start Date: 01/17/19 Encounter Start Time: 12:45 Subjective: c/o abd distention, no pain -: has progressive swelling of body -: no sob or chest pain - Objective Resuscitation Status - Order Detail: 01/16/19 19:01 Resuscitation Status Routine Resuscitation Status: FULL: Full Resuscitation Discussed with: Patient REUBEN Reviewed: Yes Vital Signs & Weight: Vital Signs (12 hours) Temp Pulse Resp BP Pulse Ox 01/17/19 12:34 97.4 F L 64 20 133/86 96 01/17/19 07:19 97.6 F 57 L 24 H 166/102 H 96 01/17/19 04:00 98.1 F 55 L 16 141/91 H 97 Weight Weight 238 lb 4.8 oz I&O: 01/16/19 01/17/19 01/18/19 06:59 06:59 06:59 Intake Total 240 Output Total 225 Balance 15 Result Diagrams: 01/17/19 05:53 01/17/19 05:53 Phys Exam - Physical Examination HEENT: PERRLA, moist MMs Neck: no JVD, supple Respiratory: no wheezing, no rales Cardiovascular: RRR, no significant murmur Gastrointestinal: soft, non-tender, positive bowel sounds ascites+++ Musculoskeletal: pulses present, edema present Neurological: non-focal, moves all 4 limbs Psychiatric: normal affect, A&O x 3 Dx/Plan (1) Anasarca Code(s): R60.1 - GENERALIZED EDEMA Status: Acute (2) Nephrotic syndrome Code(s): N04.9 - NEPHROTIC SYNDROME WITH UNSPECIFIED MORPHOLOGIC CHANGES Status: Acute Comment: membranous with PLAR2 + (3) Hypokalemia Code(s): E87.6 - HYPOKALEMIA Status: Acute (4) severe hypoalbuminemia Status: Acute Comment: sec to nephrotic syndrome (5) KILO (acute kidney injury) Code(s): N17.9 - ACUTE KIDNEY FAILURE, UNSPECIFIED Status: Acute (6) Hepatitis C Code(s): B19.20 - UNSPECIFIED VIRAL HEPATITIS C WITHOUT HEPATIC COMA Status: Chronic Qualifiers: Viral hepatitis chronicity: acute Hepatic coma status: without hepatic coma Qualified Code(s): B17.10 - Acute hepatitis C without hepatic coma [facility] , genotype 1a (7) Hypertension Code(s): I10 - ESSENTIAL (PRIMARY) HYPERTENSION Status: Acute Qualifiers: Hypertension type: essential hypertension Qualified Code(s): I10 - Essential (primary) hypertension - Plan Had paracentesis with removal of 5 liters fluid -: alb infusions x4 doses, nephrology consultation -: replace potassium, creatinine around 1.8 -: continue lasix, crestor, lopressor. -: natalie [place] dc plan in am, watch for hypotension/wors of renal function * . Review of Systems - Medications/Allergies Allergies/Adverse Reactions: Allergies Allergy/AdvReac Type Severity Reaction Status Date / Time No Known Drug Allergies Allergy Verified 01/17/19 00:17 Medications: Current Medications Acetaminophen (Tylenol) 650 mg PO Q4H PRN PRN Reason: Headache/Fever/Mild Pain (1-3) Acetaminophen (Tylenol) 650 mg [place] Q4H PRN PRN Reason: Headache/Fever/Mild Pain (1-3) Albumin Human (Albumin 25%) 25 gm IVPB Q8HR [facility] Stop: 01/18/19 14:01 Enoxaparin Sodium (Lovenox) 30 mg SC 0900 [facility] Last Admin: 01/17/19 08:11 Dose: 30 mg Famotidine (Pepcid) 20 mg PO 0900 [facility] Last Admin: 01/17/19 08:11 Dose: 20 mg Furosemide (Lasix) 40 mg SLOW IVP 0600,1400 [facility] Last Admin: 01/17/19 05:52 Dose: 40 mg Guaifenesin/Dextromethorphan (Robitussin Dm) 15 ml PO Q4H PRN PRN Reason: Cough Metoprolol Tartrate (Lopressor) 50 mg PO BID [facility] Last Admin: 01/17/19 08:10 Dose: Not Given Ondansetron HCl (Zofran Odt) 4 mg PO Q6H PRN PRN Reason: Nausea/Vomiting Ondansetron HCl (Zofran) 4 mg IVP Q6H PRN PRN Reason: Nausea/Vomiting Potassium Chloride (K-Dur) 40 meq PO BID-[facility] Rosuvastatin Calcium (Crestor) 20 mg PO HS [facility] Last Admin: 01/16/19 22:47 Dose: 20 mg Senna/Docusate Sodium (Senokot S) 2 tab PO BID PRN PRN Reason: Constipation Sodium Chloride (Flush - Normal Saline) 10 ml IVF PRN PRN PRN Reason: Saline Flush Last Admin: 01/17/19 05:52 Dose: 10 ml
[2019-01-17] MEDS: Albumin 25% 25 GM/100 ML BOT IVPB SCH ×2 (14:34→21:41)
[2019-01-17] MEDS: Rosuvastatin 20 MG TAB PO SCH (21:39)
--- NOTE | 2019-01-17 22:10 | CON ---
DATE OF CONSULTATION: 01/17/2019 CONSULTING PHYSICIAN: Peña Mcbride MD REASON FOR CONSULT: Acute kidney injury. REASON FOR ADMISSION: Anasarca. HISTORY OF PRESENT ILLNESS: This is a 53-year-old male with history of membranous nephropathy, hepatitis C, hypertension, came to the hospital with worsening swelling and acute kidney injury. Nephrology was consulted. The patient has been followed by Dr. Chaudhari. He has been having worsening ascites and swelling. No nausea or vomiting. PAST MEDICAL HISTORY: Positive for membranous nephropathy, hepatitis C, hypertension, and hyperlipidemia. PAST SURGICAL HISTORY: Tonsillectomy. HOME MEDICATIONS: 1. Lisinopril. 2. . 3. Torsemide. 4. Potassium chloride. 5. Mavyret. ALLERGIES: NO KNOWN DRUG ALLERGIES. SOCIAL HISTORY: History of marijuana use in the past and heavy alcohol use. FAMILY HISTORY: Adopted. REVIEW OF SYSTEMS: CONSTITUTIONAL: Negative for weight loss or gain, ability to conduct usual activities. SKIN: Negative for rash, itching. EYES: Negative for double vision, pain. ENT/MOUTH: Negative for nose bleeding, neck stiffness, pain, tenderness. CARDIOVASCULAR: Negative for palpitations, dyspnea on exertion, orthopnea. RESPIRATORY: Negative for shortness of breath, wheezing, cough, hemoptysis, fever or night sweats. GASTROINTESTINAL: Negative for poor appetite, abdominal pain, heartburn, nausea, vomiting, constipation, or diarrhea. GENITOURINARY: Negative for urgency, frequency, dysuria, nocturia. MUSCULOSKELETAL: Negative for pain, swelling. NEUROLOGIC/PSYCHIATRIC: Negative for anxiety, depression. ALLERGY/IMMUNOLOGIC: Negative for skin rash, bleeding tendency. PHYSICAL EXAMINATION: GENERAL: This is a well-built male, in no apparent distress. VITAL SIGNS: Temperature 97.4, pulse 64, respiratory rate . HEENT: Atraumatic and normocephalic. Oral mucosa is moist. NECK: Supple. CVS: S1, S2 heard. Rate and rhythm regular. RESPIRATORY: Clear. GI: Abdomen is soft, distended. MUSCULOSKELETAL: 1 to 2+ edema. DERMATOLOGIC: No skin rash. NEUROLOGIC: Alert and awake. PSYCHIATRIC: Normal mood and affect LABORATORY DATA: Hemoglobin is 13.3, potassium is 2.6, BUN is 17, creatinine is 1.8. ASSESSMENT AND PLAN: 1. Acute kidney injury on chronic kidney stage 3. We will monitor. 2. Hypokalemia, replace. 3. Hyperchloremia. 4. Anemia. 5. Proteinuria. 6. Membranous nephropathy. 7. Hypoalbuminemia. The patient was given immunosuppressive agents, but not able to tolerate. Prognosis is guarded. We will replace electrolytes and continue dialysis as tolerated. Monitor renal function. Avoid nephrotoxins. We will follow. Job ID: [id number]
[2019-01-18 03:33] LABS: BF Color White; Body Fluid Source Ascites Body Fluid; Clarity Cloudy/Turbid (Clear); Tube # EDTA
[2019-01-18 03:35] LABS: RBC Background Count 0.009; WBC/NonHematic-Auto 252 /cumm
[2019-01-18 04:00] LABS: BF RBC Count - Manual 33 /cumm
[2019-01-18 05:23] LABS: BF Segmented Neutrophils 1 %; Cell Count Non Hematic 9 %; Lymphocytes 90 %
[2019-01-18] MEDS: Albumin 25% 25 GM/100 ML BOT IVPB SCH (06:13)
[2019-01-18] MEDS: Furosemide 40 MG/4 ML VIAL SLOW IVP SCH (06:13)
[2019-01-18 07:08] LABS: Anion Gap 10 mmol/L (10-20); BUN (Urea Nitrogen) 17 mg/dL (8.4-25.7); Calc. Creatinine Clearance 70 mL/min (70-130); Calcium 7.7 mg/dL (7.8-10.44); Carbon Dioxide 21 mmol/L (22-29); Chloride 113 mmol/L (98-107); Estimated GFR-MDRD 43; Glucose 79 mg/dL (70-105); Sodium 141 mmol/L (136-145)
[2019-01-18 07:17] LABS: Potassium 2.8 mmol/L (3.5-5.1)
[2019-01-18] MEDS ORDERED: Potassium Chloride 20 MEQ TAB PO SCH (07:45)
[2019-01-18 07:54] VITALS: BP 159/95; TEMP 97.5
--- NOTE | 2019-01-18 08:36 | PRG ---
DATE OF SERVICE: 01/18/2019 SUBJECTIVE: Patient was seen and examined at bedside and overnight events noted. Patient denies any shortness of breath or chest pain or palpitation. No history of nausea or vomiting or diarrhea or fever or chills or cramps. OBJECTIVE: GENERAL: This is a well built male in no apparent distress. VITAL SIGNS: Temperature 97.5. Heart rate 52. Respiratory rate . Blood pressure 159/95. HEENT: Atraumatic, normocephalic. Oral mucosa is moist NECK: Supple. CARDIOVASCULAR: S1, S2 heard. Rate and rhythm regular. RESPIRATORY: Clear to auscultation. GASTROINTESTINAL: Abdomen is soft. MUSCULOSKELETAL: No tenderness. 2+ edema. DERMATOLOGIC: No skin rash. NEUROLOGIC: Alert and awake and oriented X3. No focal neurologic deficits. Moving all the extremities. PSYCHIATRIC: Mood and affect normal. LABORATORY DATA: Potassium is 2.8, BUN is 17, creatinine is 1.6. ASSESSMENT AND PLAN: 1. Acute kidney injury on chronic kidney disease, stage III. Renal function is stable. 2. Hypokalemia. Replace potassium, monitor magnesium. 3. Anemia. 4. Proteinuria. 5. Membranous nephropathy. 6. Plan to continue on diuretics with close monitoring of renal function. Job ID: [id number]
[2019-01-18] MEDS: Enoxaparin Sodium 30 MG/0.3 ML SYRINGE SC SCH (08:45)
[2019-01-18] MEDS: Metoprolol Tartrate 50 MG TAB PO SCH (08:45)
[2019-01-18] MEDS: Famotidine 20 MG TAB PO SCH (08:45)
[2019-01-18] MEDS ORDERED: Furosemide 40 MG TAB PO SCH (09:00)
[2019-01-18 09:10] LABS: Magnesium 1.7 mg/dL (1.6-2.6); Phosphorus 3.2 mg/dL (2.3-4.7)
--- NOTE | 2019-01-18 12:27 | PDOC.PN ---
- Subjective Encounter Start Date: 01/18/19 Encounter Start Time: 08:30 Subjective: feels better, no abd pain -: had some leaking around paracentesis site yest, resolved now - Objective Resuscitation Status - Order Detail: 01/16/19 19:01 Resuscitation Status Routine Resuscitation Status: FULL: Full Resuscitation Discussed with: Patient REUBEN Reviewed: Yes Vital Signs & Weight: Vital Signs (12 hours) Temp Pulse Resp BP BP Pulse Ox 01/18/19 10:03 98 01/18/19 07:20 97.5 F L 53 L 18 159/95 H 96 01/18/19 03:27 51 L 18 137/83 97 01/18/19 02:17 97 Weight Weight 221 lb I&O: 01/17/19 01/18/19 01/19/19 06:59 06:59 06:59 Intake Total 240 1404 Output Total 225 7825 Balance 15 -9154 Result Diagrams: 01/17/19 05:53 01/18/19 05:30 Phys Exam - Physical Examination HEENT: PERRLA, moist MMs Neck: no JVD, supple Respiratory: no wheezing, no rales Cardiovascular: RRR, no rub Gastrointestinal: soft, positive bowel sounds ascites++, no rigidity or guarding Musculoskeletal: pulses present, edema present Neurological: non-focal, moves all 4 limbs Psychiatric: normal affect, A&O x 3 Dx/Plan (1) Anasarca Code(s): R60.1 - GENERALIZED EDEMA Status: Acute (2) Nephrotic syndrome Code(s): N04.9 - NEPHROTIC SYNDROME WITH UNSPECIFIED MORPHOLOGIC CHANGES Status: Acute Comment: membranous with PLAR2 + (3) Hypokalemia Code(s): E87.6 - HYPOKALEMIA Status: Acute (4) severe hypoalbuminemia Status: Acute Comment: sec to nephrotic syndrome (5) KILO (acute kidney injury) Code(s): N17.9 - ACUTE KIDNEY FAILURE, UNSPECIFIED Status: Acute (6) Hepatitis C Code(s): B19.20 - UNSPECIFIED VIRAL HEPATITIS C WITHOUT HEPATIC COMA Status: Chronic Qualifiers: Viral hepatitis chronicity: acute Hepatic coma status: without hepatic coma Qualified Code(s): B17.10 - Acute hepatitis C without hepatic coma Comment: On Mavyret from 8 weeks, f/u with , genotype 1a (7) Hypertension Code(s): I10 - ESSENTIAL (PRIMARY) HYPERTENSION Status: Chronic Qualifiers: Hypertension type: essential hypertension Qualified Code(s): I10 - Essential (primary) hypertension - Plan hemostable, dc pt home, d/w -: meds optimized, needs to take kdur qid x4 doses then start home dose -: outpt f/u with and -: counselled reg med compliance -: he will be finishing his hep C course in 1 week * . Review of Systems - Medications/Allergies Allergies/Adverse Reactions: Allergies Allergy/AdvReac Type Severity Reaction Status Date / Time No Known Drug Allergies Allergy Verified 01/17/19 00:17
--- NOTE | 2019-01-18 17:21 | DIS ---
DATE OF ADMISSION: 01/16/2019 DATE OF DISCHARGE: 01/18/2019 DISCHARGE DISPOSITION: Home. PRIMARY DISCHARGE DIAGNOSES: Anasarca secondary to membranous nephrotic syndrome; massive ascites, status post paracentesis with removal of 5 L; acute kidney injury; hypokalemia; chronic hepatitis C, on treatment; and hypertension. PROCEDURES DONE DURING HOSPITALIZATION: Paracentesis done on 01/17/2019 by Interventional Radiology with removal of 5 L of slightly cloudy yellow color ascites. Ascitic fluid Gram stain is negative, moderate WBCs was seen. Hemoglobin and hematocrit of 13 and 40, platelet count 298. PT, INR, and PTT within normal limits. Discharge BUN and creatinine of 17 and 1.6, albumin was 1.6 with total protein of 5.4 on admission. Liver enzymes were within normal limits. Phosphorus 3.2, serum bicarb 21, potassium was 2.8. Ascitic fluid had 252 white count, 33 rbc's, 1% neutrophils with 90% lymphocytes. Ascitic fluid albumin was 0.2. Ascitic fluid LDH was 45. DISCHARGE PLAN: The patient to follow up with Dr. Goldstein/Watson. He also needs to follow up with Dr. Beatty in April and primary care physician in 1 week. DISCHARGE MEDICATIONS: 1. Crestor 20 mg p.o. daily. 2. Mavyret 100/40 mg p.o. three tablets daily for hep C treatment for another 8 days to complete his course. 3. Lisinopril 10 mg p.o. daily. 4. Lopressor 50 mg twice daily. 5. K-Dur 40 mEq p.o. q.6 hourly, a total of 5 tablets and then continue 20 mEq p.o. daily thereafter. 6. Demadex 40 mg p.o. daily. ALLERGIES: NO KNOWN DRUG ALLERGIES. BRIEF COURSE DURING HOSPITALIZATION: The patient initially came to ER on the for complaints of generalized edema. The patient has known history of nephrotic syndrome with membranous etiology and PLA2R positive on the kidney biopsy. He also has history of hep C, for which he is completing his treatment for genotype 1A in the next 8 days or so. The patient had massive ascites with generalized anasarca and albumin of 1.6 on arrival. He had paracentesis done with removal of 5 L of fluid. The patient still has ascites. His medications were optimized. The patient has been advised to check his pulse and blood pressure two times a day and record for 10 days to follow up with primary care physician. He is also advised to hold his Lopressor if his heart rate drops down to less than 46 or if he becomes symptomatic. The patient likely needs to have aggressive therapy for his membranous nephrotic syndrome and needs to follow up with Dr. Chaudhari in 1 week. Mr. Alondra Dubois has no medical insurance, and Dr. Chaudhari will be trying to arrange help for the same. He is hemodynamically stable, ambulating and eating well prior to discharge. Please see a [id number] documentation for the day of discharge on [employer]. Job ID: [id number] MTDD
--- NOTE | 2019-01-18 18:57 | EKG ---
Test Reason : Blood Pressure : / mmHG Vent. Rate : 062 BPM Atrial Rate : 062 BPM P-R Int : 112 ms QRS Dur : 086 ms QT Int : 440 ms P-R-T Axes : 049 -18 -04 degrees QTc Int : 446 ms Normal sinus rhythm Cannot rule out Anterior infarct , age undetermined short MD Nonspecific ST-T changes Abnormal ECG Confirmed by DR. Shaylee GAMBOA (3) on 01/18/2019 6:57:16 PM Referred By: ADRIANA Confirmed By:DR. Shaylee GAMBOA
== END 2019-01-18 11:55 | disposition home or self-care (01) ==
LOC: ERS 14:17 → ERHOLD 17:50 → 2SW 01-17 00:16
PROVIDERS: ADMIT Emergency Medicine; ATTEND Emergency Medicine
PROC: 0W9G3ZZ Drainage of Peritoneal Cavity, Percutaneous Approach (ICD-10-PCS; principal; 2019-01-18)
DX: I12.9 Hypertensive chronic kidney disease with stage 1 through stage 4 chronic kidney disease, or unspecified chronic kidney disease (principal); N18.3 Chronic kidney disease, stage 3 (moderate); N17.9 Acute kidney failure, unspecified; D63.1 Anemia in chronic kidney disease; R18.8 Other ascites; E78.5 Hyperlipidemia, unspecified; E87.6 Hypokalemia; B17.10 Acute hepatitis C without hepatic coma; B18.2 Chronic viral hepatitis C; Z87.891 Personal history of nicotine dependence; Z79.899 Other long term (current) drug therapy
CPT/HCPCS: 36415; 49083; 80048; 80053; 81003; 81015; 82042; 83615; 83690; 83735; 84100; 85025; 85060; 85610; 85730; 87070; 87205; 89051; 93005; 93010; 96361; 96365; 96366; 96372; 96374; 96375; 96376; G0378; J1650; J1940; P9047

== ENCOUNTER 2021-02-24 11:04 | Inpatient (IN) | payer SELFPAY ==
[2021-02-24 11:47] LABS: #Basophils 0.1 thou/uL (0.0-0.2); #Eosinphils 0.2 thou/uL (0.0-0.7); #Lymphocytes 3.3 thou/uL (1.20-3.40); #Monocytes 0.8 thou/uL (0.11-0.59); #Neutrophils 7.3 thou/uL (1.40-6.50); %Basophils 1.1 % (0.0-1.0); %Eosinophils 2.1 % (0.0-10.0); %Lymphocytes 27.9 % (21.0-51.0); %Monocytes 6.7 % (0.0-10.0); %Neutrophils 62.3 % (42.0-75.0); Hemoglobin 15.1 g/dL (14.0-18.0); Mean Corpuscular Volume 96.9 fL (78.0-98.0); Mean Platelet Volume 9.3 fL (7.4-10.4); Platelet Count 217 thou/uL (130-400); RBC Distribution Width 13.1 % (11.5-14.5); Red Blood Cell (RBC) Count 4.88 mill/uL (4.70-6.10); White Blood Cell (WBC) Count 11.7 thou/uL (4.8-10.8)
[2021-02-24 12:12] LABS: ALT (SGPT) 14 U/L (8-55); AST (SGOT) 16 U/L (5-34); Albumin 3.3 g/dL (3.5-5.0); Alkaline Phosphatase 93 U/L (40-110); Anion Gap 10 mmol/L (10-20); BUN (Urea Nitrogen) 45 mg/dL (8.4-25.7); Bilirubin, Total 0.4 mg/dL (0.2-1.2); CK (CPK) 78 U/L (30-200); Calc. Creatinine Clearance 0 mL/min (70-130); Calcium 8.6 mg/dL (7.8-10.44); Carbon Dioxide 17 mmol/L (22-29); Chloride 113 mmol/L (98-107); Globulin 3.3 g/dL (2.4-3.5); Glucose 112 mg/dL (70-105); Potassium 4.5 mmol/L (3.5-5.1); Protein, Total 6.6 g/dL (6.0-8.3); Sodium 135 mmol/L (136-145)
[2021-02-24 17:09] LABS: Troponin I Less than 0.010 ng/mL (< 0.028)
[2021-02-24] MEDS ORDERED: hydrALAZINE 20 MG/ML VIAL SLOW IVP PRN (18:22)
[2021-02-24 18:41] LABS: Bacteria/HPF None Seen HPF (None Seen); Bilirubin Negative (Negative); Blood, Urine 2+ (Negative); Clarity Clear (Clear); Glucose, Urine (Dipstick) 500 mg/dL (Negative); Ketone, Urine Negative (Negative); Leukocyte Negative Leu/uL (Negative); Nitrite Negative (Negative); Protein, Urine (Dipstick) 600 mg/dL (Neg-Trace); RBC/HPF 0-3 HPF (0-3); Specific Gravity, Urine 1.026 (1.002-1.036); Squamous Epithelial 0-3 HPF (0-3); Urobilinogen Normal mg/dL (Less than 2); WBC/HPF 0-3 HPF (0-3)
[2021-02-24 20:29] LABS: Troponin I Less than 0.010 ng/mL (< 0.028)
[2021-02-24 21:18] VITALS: BMI 28.7
[2021-02-24] MEDS: Sodium Chloride 0.9% 1,000 ML IV SCH (21:29)
[2021-02-25 05:18] LABS: #Basophils 0.1 thou/uL (0.0-0.2); #Eosinphils 0.3 thou/uL (0.0-0.7); #Lymphocytes 3.2 thou/uL (1.20-3.40); #Monocytes 0.6 thou/uL (0.11-0.59); #Neutrophils 4.8 thou/uL (1.40-6.50); %Basophils 0.9 % (0.0-1.0); %Eosinophils 3.2 % (0.0-10.0); %Monocytes 6.5 % (0.0-10.0); %Neutrophils 53.4 % (42.0-75.0); Hemoglobin 14.2 g/dL (14.0-18.0); Mean Corpuscular Hemoglobin 32.2 pg (27.0-31.0); Mean Corpuscular Volume 97.4 fL (78.0-98.0); Mean Platelet Volume 9.7 fL (7.4-10.4); Platelet Count 179 thou/uL (130-400); Red Blood Cell (RBC) Count 4.43 mill/uL (4.70-6.10); White Blood Cell (WBC) Count 8.9 thou/uL (4.8-10.8)
[2021-02-25 06:03] LABS: Anion Gap 5 mmol/L (10-20); BUN (Urea Nitrogen) 42 mg/dL (8.4-25.7); Calc. Creatinine Clearance 34 mL/min (70-130); Calcium 8.1 mg/dL (7.8-10.44); Carbon Dioxide 22 mmol/L (22-29); Chloride 115 mmol/L (98-107); Glucose 91 mg/dL (70-105); Potassium 4.7 mmol/L (3.5-5.1); Sodium 137 mmol/L (136-145)
[2021-02-25] MEDS: Sodium Chloride 0.9% 1,000 ML IV SCH ×2 (08:40→20:36)
[2021-02-26] MEDS: Sodium Chloride 0.9% 1,000 ML IV SCH ×2 (08:05→22:27)
[2021-02-27] MEDS ORDERED: CEFAZOLIN 1 GM VIAL ONE (08:47)
[2021-02-27] MEDS ORDERED: Gentamicin 80 MG/2 ML VIAL ONE (08:47)
[2021-02-27] MEDS ORDERED: Lidocaine 1% (PF) 30 ML VIAL ONE (08:47)
[2021-02-27] MEDS ORDERED: Fentanyl 100 MCG/2 ML VIAL ONE (09:29)
[2021-02-27] MEDS ORDERED: Midazolam HCl 2 mg/2 ml Vial ONE (09:29)
[2021-02-27] MEDS: Sodium Chloride 0.9% 1,000 ML IV SCH (13:57)
[2021-02-27] MEDS ORDERED: Morphine 2 MG/ML VIAL SLOW IVP SCH (14:30)
[2021-02-27] MEDS ORDERED: Acetaminophen/Codeine 30-300mg Tablet PO PRN ×2 (14:30)
[2021-02-27] MEDS: Cephalexin 250 MG CAP PO SCH ×2 (16:59→21:03)
[2021-02-28] MEDS: Cephalexin 250 MG CAP PO SCH (07:57)
[2021-02-28 08:06] VITALS: BP 152/91; TEMP 98.1
[2021-02-28] MEDS ORDERED: Lisinopril 10 MG TAB PO SCH (09:00)
[2021-02-28] MEDS ORDERED: Lisinopril 20 MG TAB PO SCH (09:00)
== END 2021-02-28 10:12 | disposition home or self-care (01) | DRG 243 ==
LOC: ERS 11:04 → 2SW 16:27 → OBSVTOIN 02-25 15:46
PROVIDERS: ADMIT Internal Medicine; ATTEND Physician Assistant
PROC: 0JH606Z Insertion of Pacemaker, Dual Chamber into Chest Subcutaneous Tissue and Fascia, Open Approach (ICD-10-PCS; principal; 2021-02-27)
PROC: 02HK3JZ Insertion of Pacemaker Lead into Right Ventricle, Percutaneous Approach (ICD-10-PCS; 2021-02-27)
PROC: 02H63JZ Insertion of Pacemaker Lead into Right Atrium, Percutaneous Approach (ICD-10-PCS; 2021-02-27)
DX: R00.1 Bradycardia, unspecified (principal); N04.9 Nephrotic syndrome with unspecified morphologic changes; R07.89 Other chest pain; I08.1 Rheumatic disorders of both mitral and tricuspid valves; I10 Essential (primary) hypertension; Z90.49 Acquired absence of other specified parts of digestive tract; Z90.89 Acquired absence of other organs; Z87.448 Personal history of other diseases of urinary system
CPT/HCPCS: 33230; 36415; 71045; 76942; 80048; 80053; 81003; 81015; 82550; 83735; 84443; 84484; 85025; 93005; 93010; 93306; 99152; 99153; C1785; C1898; G0378; J0690; J1580; J2001; J2250; J2270; J3010